=== PATIENT | female | born 1990 | race Hispanic/Latino ===

== ENCOUNTER 2021-06-15 12:46 | Emergency (ER) | payer OTHER ==
[~2021-06-15] VITALS: Ht 170.2 cm; Wt 72.6 kg
[2021-06-15 12:49] VITALS: BP 111/59
[2021-06-15] MEDS ORDERED: LIDOCAINE HCL 400MG/20ML VIAL ONE (13:23)
[2021-06-15] MEDS ORDERED: LIDOCAINE 1%-EPI 1:100,000 20 ML VIAL IJ SCH (14:00)
[2021-06-15] MEDS ORDERED: ACETAMINOPHEN 500 MG TABLET PO ONE (14:00)
[2021-06-15] MEDS ORDERED: CEPH500B PO (14:05)
[2021-06-15] MEDS ORDERED: CEPHALEXIN 500 MG CAPSULE PO ONE (14:30)
== END 2021-06-15 14:18 | disposition home or self-care (01) ==
LOC: EDH 12:46
DX: S61.411A Laceration without foreign body of right hand, initial encounter (principal); W25.XXXA Contact with sharp glass, initial encounter; Y93.89 Activity, other specified; Y92.89 Other specified places as the place of occurrence of the external cause; Y99.8 Other external cause status
CPT/HCPCS: 12002; 99283; J3490